=== PATIENT | female | born 2005 | race Caucasian/White ===

== ENCOUNTER 2023-03-22 03:45 | Emergency (ER) | payer MEDICAID ==
[~2023-03-22] VITALS: Ht 170.2 cm; Wt 54.4 kg
[2023-03-22] MEDS ORDERED: ONDANSETRON ODT8 MG PO (04:35)
[2023-03-22 04:40] VITALS: BP 123/70
== END 2023-03-22 04:40 | disposition home or self-care (01) ==
LOC: ED 03:45
DX: R11.2 Nausea with vomiting, unspecified (principal); Z20.822 Contact with and (suspected) exposure to COVID-19
CPT/HCPCS: 99283; A9270; C9803; U0002